=== PATIENT | male | born 1935 | race Caucasian/White ===

== ENCOUNTER 2020-03-13 12:26 | Observation (INO) ==
[2020-03-13] MEDS ORDERED: ASPIRIN 325 MG TABLET PO STA (13:02)
[2020-03-13] MEDS ORDERED: ENOXAPARIN 100 MG/ML SYRINGE SUBCUT STA (13:02)
[2020-03-13 14:28] LABS: Basophils # 0.1 10*3/uL (0.0-0.2); Basophils % 0.5 % (0.0-0.8); Eosinophils # 0.1 10*3/uL (0.0-0.87); Eosinophils % 0.7 % (0.00-10.9); Hematocrit 50.1 VOL% (42.0-52.0); Hemoglobin 16.9 GM/DL (14.0-18.0); Immature Granulocytes % 0.5 %; Immature Granulocytes Absolute 0.05 #; Lymphocytes # 1.7 10*3/uL (1.4-4.0); Lymphocytes % 18.3 % (21.2-54.2); Mean Corpuscular HGB Conc 33.7 GM/DL (32-36); Mean Corpuscular Volume 86.4 FL (87-102); Monocytes % 6.8 % (1.7-12.7); Neutrophils % 73.2 % (38.7-73.9); Platelet Count 183 T/CUMM (130-400); Red Cell Distribution Width 13.1 % (9.3-17.3); White Blood Count 9.2 T/CUMM (4-12)
[2020-03-13] MEDS ORDERED: ONDANSETRON 4 MG/2 ML VIAL IV PRN (15:33)
[2020-03-13] MEDS ORDERED: guaiFENesin/DM ER 600-30 MG TABLET PO PRN (15:33)
[2020-03-13] MEDS ORDERED: hydrALAZINE 20 MG/1 ML VIAL IV PRN (15:33)
[2020-03-13] MEDS ORDERED: ACETAMINOPHEN 325 MG TABLET PO PRN (15:33)
[2020-03-13] MEDS ORDERED: DEXTROSE 50% 25 GM/50 ML VIAL IV PRN (15:33)
[2020-03-13] MEDS ORDERED: GLUCAGON 1 MG VIAL IM PRN (15:33)
[2020-03-13] MEDS ORDERED: NITROGLYCERIN SL 0.4 MG TABLET SL PRN (15:38)
[2020-03-13] MEDS ORDERED: oxyCODONE IR 5 MG TABLET PO PRN (15:38)
[2020-03-13] MEDS: INSULIN REGULAR 100 UNIT/ML SUBCUT SCH ×2 (17:10→21:20)
[2020-03-13] MEDS: amLODIPine 5 MG TABLET PO SCH (17:12)
[2020-03-13] MEDS ORDERED: ENOXAPARIN 40 MG/0.4 ML SYRINGE SUBCUT SCH (21:00)
[2020-03-13] MEDS ORDERED: INSULIN GLARGINE 100 UNIT/ML SUBCUT SCH (21:00)
[2020-03-14 05:08] LABS: Basophils # 0.1 10*3/uL (0.0-0.2); Basophils % 0.6 % (0.0-0.8); Eosinophils # 0.1 10*3/uL (0.0-0.87); Eosinophils % 0.9 % (0.00-10.9); Hematocrit 49.6 VOL% (42.0-52.0); Hemoglobin 16.8 GM/DL (14.0-18.0); Immature Granulocytes % 0.4 %; Immature Granulocytes Absolute 0.04 #; Lymphocytes # 1.7 10*3/uL (1.4-4.0); Lymphocytes % 18.9 % (21.2-54.2); Mean Corpuscular HGB Conc 33.9 GM/DL (32-36); Mean Corpuscular Volume 85.5 FL (87-102); Mean Platelet Volume 11.1 FL (9.6-12.0); Monocytes % 7.4 % (1.7-12.7); Neutrophils % 71.8 % (38.7-73.9); Platelet Count 209 T/CUMM (130-400); Red Cell Distribution Width 13.2 % (9.3-17.3); White Blood Count 9.1 T/CUMM (4-12)
[2020-03-14 05:40] LABS: Calcium 8.7 MG/DL (8.5-10.1); Osmolality,Calculated 278.5 MOS/KG (273-304); Risk Ratio 3.67; Thyroid Stimulating Hormone 3.37 uIU/ml (0.358-3.74); VLDL CHOLESTEROL 19.8 MG/DL
[2020-03-14] MEDS ORDERED: POTASSIUM CHLORIDE 20 MEQ TABLET PO ONE ×2 (07:11→14:06)
[2020-03-14] MEDS ORDERED: ENOXAPARIN 40 MG/0.4 ML SYRINGE SUBCUT SCH (07:30)
[2020-03-14] MEDS ORDERED: ASPIRIN CHEW 81 MG TABLET PO SCH (09:00)
[2020-03-14] MEDS ORDERED: PANTOPRAZOLE 40 MG TABLET PO SCH (09:00)
[2020-03-14] MEDS: amLODIPine 5 MG TABLET PO SCH (09:22)
[2020-03-14] MEDS: INSULIN REGULAR 100 UNIT/ML SUBCUT SCH ×3 (09:47→16:33)
[2020-03-14] MEDS ORDERED: ASCORBIC ACID 500 MG TABLET PO SCH (14:30)
[2020-03-14 16:02] VITALS: BP 125/64
[2020-03-15] MEDS ORDERED: POTASSIUM CHLORIDE 20 MEQ TABLET PO SCH (09:00)
== END 2020-03-14 17:20 | disposition home or self-care (01) ==
LOC: EDUNIT# → EDBD → N.EDINP 12:26 → N.ED 12:26 → N.EDINP 15:33 → N.TELES 15:57
PROVIDERS: ADMIT Internal Medicine; ATTEND Internal Medicine

== ENCOUNTER 2022-08-10 12:14 | Inpatient (IN) ==
[2022-08-10 13:20] LABS: Basophils % 0.1 % (0.0-0.8); Hematocrit 45.2 VOL% (42.0-52.0); Immature Granulocytes % 0.6 %; Immature Granulocytes Absolute 0.13 #; Lymphocytes # 0.4 10*3/uL (1.4-4.0); Lymphocytes % 1.9 % (21.2-54.2); Mean Corpuscular HGB Conc 33.2 GM/DL (32-36); Mean Corpuscular Volume 90.9 FL (87-102); Mean Platelet Volume 10.8 FL (9.6-12.0); Monocytes # 0.9 10*3/uL (0.11-0.8); Monocytes % 4.2 % (1.7-12.7); Neutrophils % 93.2 % (38.7-73.9); Platelet Count 250 T/CUMM (130-400); Red Blood Count 4.97 MC/CUMM (3.8-5.5); White Blood Count 21.6 T/CUMM (4-12)
[2022-08-10 13:29] LABS: INR 1.1; PT Patient Result 11.8 SECS (10.1-12.1); Partial Thromboplastin Time 29.7 SECS (23.7-32.9)
[2022-08-10 13:39] LABS: Albumin 2.9 G/DL (3.4-5.0); Bilirubin,Total 0.8 MG/DL (0.20-1.00); Calcium 8.9 MG/DL (8.5-10.1); Total Protein 6.3 G/DL (6.4-8.2)
[2022-08-10 13:42] LABS: Band Neutrophils 7 % (0-10); Lymphocytes 4 % (20-55); Platelet Estimate Normal; Total Cells Counted 100
[2022-08-10 14:57] LABS: Mucus,Urine Occasional /LPF (Occasional)
[2022-08-10] MEDS ORDERED: SODIUM CHLORIDE 0.9% 500 ML IV STA (14:57)
[2022-08-10 14:58] LABS: Urine Appearance Clear (Clear); Urine Color Yellow (Yellow)
[2022-08-10 14:59] LABS: Bilirubin,Urine Negative (Negative); Blood, Urine Moderate mg/dL (Negative); Glucose,Urine (UA) 500 mg/dL (Negative); Ketones,Urine >160 mg/dL (Negative); Nitrite,Urine Negative (Negative); Protein,Urine >=300 mg/dL (Negative); Urine Specific Gravity > 1.030 (1.001-1.035); Urine Urobilinogen 0.2 eU/dL (<2.0); Urine pH 5.5 (4.5-8.0)
[2022-08-10] MEDS ORDERED: PIPERACILLIN/TAZOBACTAM 3,375 MG in SODIUM CHLORIDE 0.9% 100 ML IV STA (15:04)
[2022-08-10] MEDS ORDERED: ACETAMINOPHEN 500 MG TABLET PO STA (15:05)
[2022-08-10 15:47] LABS: Barbiturates Screen,Urine Negative (Negative); Benzodiazepines Screen,Urine Negative (Negative); Cannabinoid Screen,Urine Negative (Negative); Opiate Screen,Urine Negative (Negative); Phencyclidine Screen,Urine Negative (Negative)
[2022-08-10] MEDS ORDERED: ACETAMINOPHEN 325 MG TABLET PO PRN (16:27)
[2022-08-10] MEDS ORDERED: ONDANSETRON 4 MG/2 ML VIAL IV PRN (16:27)
[2022-08-10] MEDS ORDERED: ENOXAPARIN 40 MG/0.4 ML SYRINGE SUBCUT SCH (16:30)
[2022-08-10] MEDS: PANTOPRAZOLE 40 MG TABLET PO SCH (17:21)
[2022-08-10] MEDS ORDERED: hydrALAZINE 20 MG/1 ML VIAL IV PRN (17:27)
[2022-08-10] MEDS ORDERED: NITROGLYCERIN SL 0.4 MG TABLET SL PRN (18:31)
[2022-08-10] MEDS: SODIUM CHLORIDE 0.9% 1,000 ML IV SCH (19:01)
[2022-08-10] MEDS: DONEPEZIL 10 MG TABLET PO SCH (21:13)
[2022-08-10] MEDS: MEMANTINE 5 MG TABLET PO SCH (21:13)
[2022-08-10] MEDS: PIPERACILLIN/TAZOBACTAM 3,375 MG in SODIUM CHLORIDE 0.9% 100 ML IV SCH (21:20)
[2022-08-11 05:30] LABS: Basophils % 0.1 % (0.0-0.8); Hematocrit 45.6 VOL% (42.0-52.0); Hemoglobin 15.2 GM/DL (14.0-18.0); Immature Granulocytes % 0.8 %; Immature Granulocytes Absolute 0.18 #; Lymphocytes # 0.8 10*3/uL (1.4-4.0); Lymphocytes % 3.8 % (21.2-54.2); Mean Corpuscular HGB Conc 33.3 GM/DL (32-36); Mean Corpuscular Volume 90.7 FL (87-102); Mean Platelet Volume 11.1 FL (9.6-12.0); Monocytes # 1.3 10*3/uL (0.11-0.8); Monocytes % 6.2 % (1.7-12.7); Neutrophils % 89.1 % (38.7-73.9); Platelet Count 264 T/CUMM (130-400); Red Blood Count 5.03 MC/CUMM (3.8-5.5); Red Cell Distribution Width 13.2 % (9.3-17.3); White Blood Count 21.5 T/CUMM (4-12)
[2022-08-11 05:54] LABS: Lymphocytes 3 % (20-55); Platelet Estimate Adequate; Total Cells Counted 100
[2022-08-11 06:04] LABS: Albumin 2.4 G/DL (3.4-5.0); Bilirubin,Total 0.7 MG/DL (0.20-1.00); Calcium 8.4 MG/DL (8.5-10.1); Osmolality,Calculated 281.2 MOS/KG (273-304); Potassium 3.6 MMOL/L (3.5-5.1); Risk Ratio 4.78; Thyroid Stimulating Hormone 0.504 uIU/ml (0.358-3.74); Total Protein 6.5 G/DL (6.4-8.2); VLDL Cholesterol 32.4 MG/DL
[2022-08-11] MEDS: PIPERACILLIN/TAZOBACTAM 3,375 MG in SODIUM CHLORIDE 0.9% 100 ML IV SCH ×3 (06:19→23:28)
[2022-08-11] MEDS: SODIUM CHLORIDE 0.9% 1,000 ML IV SCH (06:42)
[2022-08-11] MEDS: PANTOPRAZOLE 40 MG TABLET PO SCH (10:26)
[2022-08-11] MEDS: lisinopriL 2.5 MG TABLET PO SCH (10:27)
[2022-08-11] MEDS: MEMANTINE 5 MG TABLET PO SCH ×2 (10:27→23:24)
[2022-08-11] MEDS: VANCOMYCIN INJ 1,000 MG in SODIUM CHLORIDE 0.9% 250 ML IV SCH (16:58)
[2022-08-11] MEDS: MELOXICAM 7.5 MG TABLET PO PRN (16:58)
[2022-08-11] MEDS: LACTATED RINGERS 1,000 ML IV SCH (17:02)
[2022-08-11] MEDS: INSULIN LISPRO 100 UNIT/ML SUBCUT SCH (18:05)
[2022-08-11] MEDS ORDERED: MIDAZOLAM 2 MG/2 ML VIAL ONE (20:35)
[2022-08-11] MEDS ORDERED: propofoL 200 MG/20 ML VIAL IV ONE (20:35)
[2022-08-11] MEDS ORDERED: KETAMINE 500 MG/10 ML VIAL ONE (20:35)
[2022-08-11] MEDS ORDERED: LIDOCAINE 2% 5 ML VIAL ONE (20:35)
[2022-08-11] MEDS ORDERED: LIDOCAINE 1% 5 ML VIAL ONE (21:02)
[2022-08-11] MEDS ORDERED: ONDANSETRON 4 MG/2 ML VIAL ONE (21:10)
[2022-08-11] MEDS ORDERED: VANCOMYCIN 1,000 MG VIAL ONE (21:11)
[2022-08-11] MEDS: DONEPEZIL 10 MG TABLET PO SCH (23:24)
[2022-08-12] MEDS: INSULIN LISPRO 100 UNIT/ML SUBCUT SCH ×4 (01:21→17:24)
[2022-08-12 05:26] LABS: Basophils % 0.1 % (0.0-0.8); Hematocrit 45.9 VOL% (42.0-52.0); Hemoglobin 15.4 GM/DL (14.0-18.0); Immature Granulocytes Absolute 0.15 #; Lymphocytes # 0.6 10*3/uL (1.4-4.0); Lymphocytes % 3.7 % (21.2-54.2); Mean Corpuscular HGB Conc 33.6 GM/DL (32-36); Mean Corpuscular Volume 89.1 FL (87-102); Mean Platelet Volume 11.1 FL (9.6-12.0); Monocytes # 0.7 10*3/uL (0.11-0.8); Monocytes % 4.4 % (1.7-12.7); Neutrophils % 90.8 % (38.7-73.9); Platelet Count 245 T/CUMM (130-400); Red Blood Count 5.15 MC/CUMM (3.8-5.5); White Blood Count 15.5 T/CUMM (4-12)
[2022-08-12 05:43] LABS: Albumin 2.4 G/DL (3.4-5.0); Bilirubin,Total 0.8 MG/DL (0.20-1.00); Calcium 8.7 MG/DL (8.5-10.1); Osmolality,Calculated 284.7 MOS/KG (273-304); Potassium 3.5 MMOL/L (3.5-5.1); Total Protein 6.4 G/DL (6.4-8.2)
[2022-08-12] MEDS: PIPERACILLIN/TAZOBACTAM 3,375 MG in SODIUM CHLORIDE 0.9% 100 ML IV SCH (05:46)
[2022-08-12 05:56] LABS: Lymphocytes 5 % (20-55); Platelet Estimate Adequate; Total Cells Counted 100
[2022-08-12] MEDS: LACTATED RINGERS 1,000 ML IV SCH ×2 (06:04→13:15)
[2022-08-12] MEDS: lisinopriL 2.5 MG TABLET PO SCH (08:49)
[2022-08-12] MEDS: PANTOPRAZOLE 40 MG TABLET PO SCH (08:49)
[2022-08-12] MEDS: MEMANTINE 5 MG TABLET PO SCH ×2 (08:49→20:39)
[2022-08-12] MEDS: VANCOMYCIN INJ 1,000 MG in SODIUM CHLORIDE 0.9% 250 ML IV SCH (09:47)
[2022-08-12] MEDS ORDERED: lisinopriL 2.5 MG TABLET PO ONE (11:00)
[2022-08-12] MEDS: DONEPEZIL 10 MG TABLET PO SCH (20:39)
[2022-08-13] MEDS: INSULIN LISPRO 100 UNIT/ML SUBCUT SCH ×5 (00:49→21:15)
[2022-08-13] MEDS: VANCOMYCIN INJ 1,000 MG in SODIUM CHLORIDE 0.9% 250 ML IV SCH ×2 (01:48→18:02)
[2022-08-13 06:00] LABS: Basophils % 0.2 % (0.0-0.8); Hematocrit 44.4 VOL% (42.0-52.0); Hemoglobin 14.9 GM/DL (14.0-18.0); Immature Granulocytes % 2.2 %; Immature Granulocytes Absolute 0.37 #; Lymphocytes # 0.8 10*3/uL (1.4-4.0); Lymphocytes % 4.7 % (21.2-54.2); Mean Corpuscular HGB Conc 33.6 GM/DL (32-36); Mean Corpuscular Volume 89.9 FL (87-102); Mean Platelet Volume 11.1 FL (9.6-12.0); Monocytes # 0.9 10*3/uL (0.11-0.8); Monocytes % 5.3 % (1.7-12.7); Neutrophils % 87.6 % (38.7-73.9); Platelet Count 246 T/CUMM (130-400); Red Blood Count 4.94 MC/CUMM (3.8-5.5); Red Cell Distribution Width 12.8 % (9.3-17.3); White Blood Count 16.7 T/CUMM (4-12)
[2022-08-13 06:22] LABS: Lymphocytes 3 % (20-55); Total Cells Counted 100
[2022-08-13 06:24] LABS: Platelet Estimate Normal
[2022-08-13 06:28] LABS: Albumin 2.2 G/DL (3.4-5.0); Bilirubin,Total 0.8 MG/DL (0.20-1.00); Calcium 8.3 MG/DL (8.5-10.1); Osmolality,Calculated 283.7 MOS/KG (273-304); Potassium 3.4 MMOL/L (3.5-5.1)
[2022-08-13] MEDS: PANTOPRAZOLE 40 MG TABLET PO SCH (08:31)
[2022-08-13] MEDS: lisinopriL 10 MG TABLET PO SCH (08:31)
[2022-08-13] MEDS: MEMANTINE 5 MG TABLET PO SCH ×2 (08:32→21:15)
[2022-08-13] MEDS ORDERED: POTASSIUM CHLORIDE 20 MEQ TABLET PO ONE (09:00)
[2022-08-13] MEDS: LACTATED RINGERS 1,000 ML IV SCH (09:56)
[2022-08-13] MEDS: MELOXICAM 7.5 MG TABLET PO PRN (11:47)
[2022-08-13] MEDS ORDERED: hydrALAZINE 20 MG/1 ML VIAL IV PRN (13:30)
[2022-08-13] MEDS: carvediloL 3.125 MG TABLET PO SCH (16:24)
[2022-08-13] MEDS: metFORMIN 500 MG TABLET PO SCH (16:24)
[2022-08-13] MEDS: DONEPEZIL 10 MG TABLET PO SCH (21:15)
[2022-08-14] MEDS: LACTATED RINGERS 1,000 ML IV SCH (04:54)
[2022-08-14 06:22] LABS: Basophils % 0.1 % (0.0-0.8); Eosinophils % 0.1 % (0.00-10.9); Hemoglobin 14.2 GM/DL (14.0-18.0); Immature Granulocytes % 1.3 %; Lymphocytes % 6.5 % (21.2-54.2); Mean Corpuscular HGB Conc 33.8 GM/DL (32-36); Mean Platelet Volume 11.7 FL (9.6-12.0); Monocytes % 6.4 % (1.7-12.7); Neutrophils % 85.6 % (38.7-73.9); Platelet Count 234 T/CUMM (130-400); Red Blood Count 4.72 MC/CUMM (3.8-5.5); Red Cell Distribution Width 12.7 % (9.3-17.3); White Blood Count 15.3 T/CUMM (4-12)
[2022-08-14 06:46] LABS: Bilirubin,Total 0.6 MG/DL (0.20-1.00); Calcium 8.1 MG/DL (8.5-10.1); Osmolality,Calculated 276.1 MOS/KG (273-304); Potassium 3.4 MMOL/L (3.5-5.1); Total Protein 5.4 G/DL (6.4-8.2)
[2022-08-14] MEDS: carvediloL 3.125 MG TABLET PO SCH ×2 (09:14→17:10)
[2022-08-14] MEDS: INSULIN LISPRO 100 UNIT/ML SUBCUT SCH ×4 (09:14→21:47)
[2022-08-14] MEDS: metFORMIN 500 MG TABLET PO SCH ×2 (09:14→17:10)
[2022-08-14] MEDS: PANTOPRAZOLE 40 MG TABLET PO SCH (09:14)
[2022-08-14] MEDS: lisinopriL 10 MG TABLET PO SCH (09:14)
[2022-08-14] MEDS: MEMANTINE 5 MG TABLET PO SCH ×2 (09:14→21:48)
[2022-08-14] MEDS: MELOXICAM 7.5 MG TABLET PO PRN (10:11)
[2022-08-14] MEDS ORDERED: POTASSIUM CHLORIDE 20 MEQ TABLET PO ONE (11:00)
[2022-08-14] MEDS: VANCOMYCIN INJ 1,000 MG in SODIUM CHLORIDE 0.9% 250 ML IV SCH (14:31)
[2022-08-14] MEDS: DONEPEZIL 10 MG TABLET PO SCH (21:47)
[2022-08-15 05:37] LABS: Basophils # 0.1 10*3/uL (0.0-0.2); Basophils % 0.3 % (0.0-0.8); Eosinophils % 0.2 % (0.00-10.9); Hematocrit 51.4 VOL% (42.0-52.0); Hemoglobin 16.8 GM/DL (14.0-18.0); Immature Granulocytes % 1.4 %; Immature Granulocytes Absolute 0.25 #; Lymphocytes % 5.6 % (21.2-54.2); Mean Corpuscular HGB Conc 32.7 GM/DL (32-36); Mean Corpuscular Volume 90.7 FL (87-102); Mean Platelet Volume 11.7 FL (9.6-12.0); Monocytes # 1.1 10*3/uL (0.11-0.8); Monocytes % 5.8 % (1.7-12.7); Neutrophils % 86.7 % (38.7-73.9); Platelet Count 210 T/CUMM (130-400); Red Blood Count 5.67 MC/CUMM (3.8-5.5); Red Cell Distribution Width 12.6 % (9.3-17.3); White Blood Count 18.1 T/CUMM (4-12)
[2022-08-15] MEDS: LACTATED RINGERS 1,000 ML IV SCH (07:12)
[2022-08-15 07:55] LABS: Calcium 8.6 MG/DL (8.5-10.1); Osmolality,Calculated 272.2 MOS/KG (273-304); Potassium 3.2 MMOL/L (3.5-5.1)
[2022-08-15] MEDS: PANTOPRAZOLE 40 MG TABLET PO SCH (08:47)
[2022-08-15] MEDS: metFORMIN 500 MG TABLET PO SCH ×2 (08:47→16:07)
[2022-08-15] MEDS: MEMANTINE 5 MG TABLET PO SCH ×2 (08:47→21:53)
[2022-08-15] MEDS: lisinopriL 10 MG TABLET PO SCH (08:47)
[2022-08-15] MEDS: carvediloL 3.125 MG TABLET PO SCH ×2 (08:48→16:07)
[2022-08-15] MEDS: INSULIN LISPRO 100 UNIT/ML SUBCUT SCH ×4 (08:48→21:53)
[2022-08-15] MEDS: POTASSIUM CHLORIDE 20 MEQ TABLET PO SCH ×2 (10:53→12:41)
[2022-08-15] MEDS: DONEPEZIL 10 MG TABLET PO SCH (21:53)
[2022-08-16 05:22] LABS: Basophils % 0.1 % (0.0-0.8); Eosinophils % 0.1 % (0.00-10.9); Hematocrit 48.2 VOL% (42.0-52.0); Hemoglobin 15.7 GM/DL (14.0-18.0); Immature Granulocytes % 1.6 %; Immature Granulocytes Absolute 0.33 #; Lymphocytes # 1.1 10*3/uL (1.4-4.0); Lymphocytes % 5.4 % (21.2-54.2); Mean Corpuscular HGB Conc 32.6 GM/DL (32-36); Mean Corpuscular Volume 90.9 FL (87-102); Mean Platelet Volume 11.6 FL (9.6-12.0); Monocytes # 1.1 10*3/uL (0.11-0.8); Monocytes % 5.3 % (1.7-12.7); Neutrophils % 87.5 % (38.7-73.9); Platelet Count 308 T/CUMM (130-400); Red Cell Distribution Width 12.9 % (9.3-17.3); White Blood Count 20.1 T/CUMM (4-12)
[2022-08-16 05:48] LABS: Calcium 8.3 MG/DL (8.5-10.1); Osmolality,Calculated 271.5 MOS/KG (273-304); Potassium 4.1 MMOL/L (3.5-5.1)
[2022-08-16 06:20] LABS: Lymphocytes 7 % (20-55); Total Cells Counted 100
[2022-08-16 06:21] LABS: Platelet Estimate Normal
[2022-08-16] MEDS: carvediloL 3.125 MG TABLET PO SCH ×2 (08:47→17:58)
[2022-08-16] MEDS: metFORMIN 500 MG TABLET PO SCH ×2 (08:47→17:58)
[2022-08-16] MEDS: lisinopriL 10 MG TABLET PO SCH (08:47)
[2022-08-16] MEDS: MEMANTINE 5 MG TABLET PO SCH (08:47)
[2022-08-16] MEDS: PANTOPRAZOLE 40 MG TABLET PO SCH (08:47)
[2022-08-16] MEDS: INSULIN LISPRO 100 UNIT/ML SUBCUT SCH ×3 (08:48→17:58)
[2022-08-16 15:31] VITALS: BP 157/80
[2022-08-16] MEDS: LACTATED RINGERS 1,000 ML IV SCH ×2 (17:17→17:21)
== END 2022-08-16 19:13 | DRG 908 ==
LOC: EDUNIT# → EDBD → N.ED 12:14 → SUATTDRO 16:27 → N.EDINP 16:27 → N.5E 18:11
PROVIDERS: ADMIT Internal Medicine; ATTEND Internal Medicine